=== PATIENT | male | born 1970 | race Caucasian/White ===

== ENCOUNTER 2019-11-02 05:45 | Day surgery (SDC) | payer OTHER ==
[~2019-11-02] VITALS: Ht 185.4 cm; Wt 95.0 kg
[2019-11-02] MEDS ORDERED: LACTATED RINGERS 1,000 ML IV SCH (06:07)
[2019-11-02 06:10] VITALS: BP 143/93
[2019-11-02] MEDS ORDERED: SERT50TA PO (06:10)
[2019-11-02] MEDS ORDERED: LIOT5TAB11 PO (06:10)
[2019-11-02] MEDS ORDERED: LEVO137T2 PO (06:10)
[2019-11-02] MEDS ORDERED: CLOM50TA17 PO (06:10)
[2019-11-02] MEDS ORDERED: ASPI-496 PO (06:10)
[2019-11-02] MEDS ORDERED: CHLORHEXIDINE 15 ML UDC ONE (06:16)
[2019-11-02] MEDS ORDERED: CHLORHEXIDINE 15 ML UDC MM ONE (06:30)
[2019-11-02] MEDS ORDERED: PLEASE ENTER ALLERGIES MC SCH (06:30)
[2019-11-02] MEDS ORDERED: MIDAZOLAM 1 MG/ML, 2ML ONE (06:35)
[2019-11-02] MEDS ORDERED: FENTANYL PF 100 MCG/2ML ONE ×2 (06:35→08:00)
[2019-11-02] MEDS ORDERED: PROPOFOL 10 MG/ML, 20ML ONE ×2 (06:35)
[2019-11-02] MEDS ORDERED: BUPIVACAINE/PF-EPI 0.25% 1:200K ONE (06:38)
[2019-11-02] MEDS ORDERED: morphine SULFATE/PF 1 MG/ML, 10ML ONE (06:38)
[2019-11-02] MEDS ORDERED: DEXAMETHASONE 4 MG/ML, 1ML ONE ×2 (06:58)
[2019-11-02] MEDS ORDERED: ONDANSETRON 2MG/ML, 2ML ONE (07:03)
[2019-11-02] MEDS ORDERED: KETOROLAC 30 MG/1 ML ONE (07:04)
[2019-11-02] MEDS ORDERED: LIDOCAINE 1%, 20ML INFIL ONE (07:15)
[2019-11-02] MEDS ORDERED: FENTANYL PF 100 MCG/2ML IV PRN (07:30)
[2019-11-02] MEDS ORDERED: OXYcodone 5 MG/5 ML ORAL.SOL UDC PO PRN (07:30)
[2019-11-02] MEDS ORDERED: MEPERIDINE/PF 25MG/0.5ML IVPush PRN (07:30)
[2019-11-02] MEDS ORDERED: PROMETHAZINE 25 MG/ML, 1ML IVPush PRN (07:30)
[2019-11-02] MEDS ORDERED: ACETAMINOPHEN 325 MG TABLET PO PRN (07:30)
[2019-11-02] MEDS ORDERED: CEFAZOLIN 1,000 MG ONE ×2 (07:34)
[2019-11-02] MEDS ORDERED: LIDOCAINE 1%, 20ML ONE (07:44)
[2019-11-02] MEDS ORDERED: ACETAMINOPHEN 650 MG/20.3 ML UDC ONE (08:00)
[2019-11-02] MEDS ORDERED: OXYcodone 5 MG/5 ML ORAL.SOL UDC ONE (08:01)
== END 2019-11-02 09:15 | disposition home or self-care (01) ==
LOC: OUT 05:45
PROVIDERS: ATTEND Orthopaedic Surgery
DX: S83.232A Complex tear of medial meniscus, current injury, left knee, initial encounter (principal); Z11.59 Encounter for screening for other viral diseases; M22.42 Chondromalacia patellae, left knee; M25.462 Effusion, left knee; M06.9 Rheumatoid arthritis, unspecified; M19.90 Unspecified osteoarthritis, unspecified site; Z79.1 Long term (current) use of non-steroidal anti-inflammatories (NSAID); Z79.890 Hormone replacement therapy; Z79.899 Other long term (current) drug therapy; Z82.49 Family history of ischemic heart disease and other diseases of the circulatory system; Z82.61 Family history of arthritis; X58.XXXA Exposure to other specified factors, initial encounter; Y93.01 Activity, walking, marching and hiking; Y92.69 Other specified industrial and construction area as the place of occurrence of the external cause; Y99.8 Other external cause status
CPT/HCPCS: 29881; J0690; J1100; J1885; J2250; J2274; J2405; J2704; J3010; J7120; U0001